=== PATIENT | male | born 1960 | race Two or more races ===

== ENCOUNTER 2024-10-29 18:48 | Inpatient (IN) | payer MEDICAID ==
[~2024-10-29] VITALS: Ht 165.1 cm; Wt 48.5 kg
[2024-10-29] MEDS ORDERED: levoFLOXacin 750MG/D5W 150 ML IV ONE (19:15)
[2024-10-29] MEDS: IV NORMAL SALINE 1000 ML BAG IV ONE (19:30)
[2024-10-29 19:34] LABS: BASOPHILS # (AUTO) 0.1 K/UL (0.0-0.2); BASOPHILS % (AUTO) 0.6 % (0.0-2.0); HEMATOCRIT 30.8 % (36.7-47.1); HEMOGLOBIN 10.1 g/dL (12.5-16.3); LYMPHOCYTES # (AUTO) 0.7 K/uL (0.8-4.8); MEAN CORPUSCULAR HGB CONC 33 g/dL (32.5-36.3); MEAN CORPUSCULAR VOLUME 91.8 fL (73.0-96.2); MONOCYTES # (AUTO) 0.7 K/uL (0.1-1.30); MONOCYTES % (AUTO) 6.4 % (0.0-11.0); NEUTROPHILS # (AUTO) 9.7 K/uL (1.8-8.9); PLATELET COUNT (AUTO) 372 K/uL (152-348); RED BLOOD CELL COUNT(AUTO) 3.35 MIL/uL (4.06-5.63); RED CELL DISTRIBUTION WIDTH 15.9 % (12.1-16.2); WHITE BLOOD COUNT (AUTO) 11.1 K/uL (3.6-10.2)
[2024-10-29 19:43] LABS: DIFFERENTIAL COMMENT 1
[2024-10-29] MEDS ORDERED: CEFEPIME HCL 1 G VIAL ONE (19:43)
[2024-10-29] MEDS ORDERED: VANCOMYCIN IV 200 ML ONE (19:43)
[2024-10-29] MEDS ORDERED: METRONIDAZOLE 500 MG/NS 100ML 100 ML IV ONE (19:44)
[2024-10-29 19:45] LABS: *BILIRUBIN,URIN 1+ (NEGATIVE); *BLOOD, URINE 3+ (NEGATIVE); *COLOR,URINE RED (YELLOW); *KETONES,URINE 1+ (NEGATIVE); *PROTEIN,URINE 3+ (NEGATIVE); LEUKOCYTE ESTERASE ,URINE 3+ (NEGATIVE); NITRITE, URINE NEGATIVE (NEGATIVE); PH,URINE 5.5 (5.0-8.0); UGLUCOSE NEGATIVE (NEGATIVE)
[2024-10-29] MEDS: METRONIDAZOLE 500 MG/NS 100 ML PIGGYBACK IV ONE (19:45)
[2024-10-29 19:49] LABS: CALCIUM 9.9 mg/dL (8.5-10.1); CARBON DIOXIDE 29 mmol/L (21-32); CHLORIDE 109 mmol/L (98-107); GLUCOSE 250 mg/dL (74-106); POTASSIUM 5.4 mmol/L (3.5-5.1); SODIUM SERUM 149 mmol/L (136-145); UREA NITROGEN, BLOOD 75 mg/dL (7-18)
[2024-10-29 19:51] LABS: *CLARITY,URINE HAZY (CLEAR)
[2024-10-29] MEDS ORDERED: QUET400T PO (19:55)
[2024-10-29] MEDS ORDERED: INSU100C (19:55)
[2024-10-29] MEDS ORDERED: RISP3TAB61 PO (19:55)
[2024-10-29] MEDS ORDERED: METF-442 PO (19:55)
[2024-10-29] MEDS ORDERED: DOCU100T2 PO (19:55)
[2024-10-29] MEDS ORDERED: IPRA3AMP23 IH (19:55)
[2024-10-29] MEDS ORDERED: LISI10TA29 PO (19:55)
[2024-10-29] MEDS ORDERED: TAMS-3 PO (19:55)
[2024-10-29] MEDS ORDERED: NUT.237L36 PO (19:55)
[2024-10-29] MEDS ORDERED: HYDR50TA62 PO (19:55)
[2024-10-29] MEDS ORDERED: ACET-3117 PO (19:55)
[2024-10-29 20:03] LABS: ALANINE AMINOTRANSFERASE 21 U/L (16-63); ALKALINE PHOSPHATASE 76 U/L (50-136); ASPARTATE AMINOTRANSFERASE 16 U/L (15-37); BILIRUBIN,DIRECT 0.1 mg/dL (0.0-0.2); BILIRUBIN,TOTAL 0.5 mg/dL (0.2-1.0); NT-PRO BNP 285 pg/mL (0-125); TOTAL PROTEIN, SERUM 7.4 g/dL (6.4-8.2)
[2024-10-29 20:05] LABS: LACTIC ACID 4.8 mmol/L (0.4-2.0)
[2024-10-29 20:13] LABS: RBC,URINE TNTC /HPF (0-3)
[2024-10-29 20:14] LABS: BACTERIA,URINE FEW /HPF (NONE SEEN); SQUAMOUS EPITHELIAL CELL,UR FEW /HPF (NONE SEEN); WBC,URINE 20-50 /HPF (0-3)
[2024-10-29 20:15] LABS: YEAST,URINE PSEUDOHYPHAE /HPF (NONE SEEN)
[2024-10-29] MEDS: CEFEPIME HCL 2 G in IV DEXTROSE 5% 100 ML IV ONE (20:24)
[2024-10-29] MEDS: VANCOMYCIN IV 1,000 MG in IV DEXTROSE 5% 250 ML IV ONE (20:24)
[2024-10-29 20:38] VITALS: O2SAT 97
[2024-10-29] MEDS ORDERED: PIPERACILLIN/TAZOBACTAM/D5W 50 ML ONE (23:35)
[2024-10-30] VITALS: BP 102/64; TEMP 98.6; O2SAT 98
[2024-10-30] MEDS ORDERED: ONDANSETRON 4 MG/2 ML VIAL IV PRN
[2024-10-30] MEDS ORDERED: ALBUTEROL SULFATE 2.5 MG/3 ML NEBU NEB PRN ×2 (00:15→13:59)
[2024-10-30] MEDS: PIPERACILLIN/TAZO 2.25 G in IV DEXTROSE 5% 50 ML IV SCH (00:54)
[2024-10-30] MEDS: IV D5/ 0.9% NACL 1,000 ML IV PRN (00:54)
[2024-10-30 04:00] VITALS: BP 101/61; TEMP 97.1; O2SAT 97
[2024-10-30] MEDS ORDERED: PIPERACILLIN/TAZO 2.25 G in IV DEXTROSE 5% 50 ML IV SCH ×2 (06:00)
[2024-10-30 07:08] LABS: BASOPHILS % (AUTO) 0.3 % (0.0-2.0); EOSINOPHILS # (AUTO) 0.1 K/uL (0.0-0.7); HEMATOCRIT 29.3 % (36.7-47.1); HEMOGLOBIN 9.8 g/dL (12.5-16.3); LYMPHOCYTES # (AUTO) 0.7 K/uL (0.8-4.8); MEAN CORPUSCULAR HEMOGLOBIN 30.4 uug (23.8-33.4); MEAN CORPUSCULAR HGB CONC 33 g/dL (32.5-36.3); MEAN CORPUSCULAR VOLUME 91.4 fL (73.0-96.2); MONOCYTES # (AUTO) 0.7 K/uL (0.1-1.30); MONOCYTES % (AUTO) 8.3 % (0.0-11.0); NEUTROPHILS # (AUTO) 6.6 K/uL (1.8-8.9); NEUTROPHILS % (AUTO) 81.4 % (38.5-71.5); PLATELET COUNT (AUTO) 321 K/uL (152-348); RED CELL DISTRIBUTION WIDTH 15.6 % (12.1-16.2); WHITE BLOOD COUNT (AUTO) 8.1 K/uL (3.6-10.2)
[2024-10-30 07:19] LABS: DIFFERENTIAL COMMENT 1
[2024-10-30 07:30] LABS: THYROID STIMULATING HORMONE 1.866 mIU/mL (0.358-3.740)
[2024-10-30 07:43] VITALS: BP 107/70; TEMP 97.9; O2SAT 97
[2024-10-30 08:27] LABS: ALBUMIN 2.6 g/dL (3.4-5.0); BILIRUBIN,TOTAL 0.4 mg/dL (0.2-1.0); CALCIUM 9.1 mg/dL (8.5-10.1); CREATININE 0.9 mg/dL (0.6-1.3); MAGNESIUM 2.4 mg/dL (1.8-2.4); PHOSPHOROUS 3.4 mg/dL (2.5-4.9); POTASSIUM 3.9 mmol/L (3.5-5.1); TOTAL PROTEIN, SERUM 6.7 g/dL (6.4-8.2)
[2024-10-30] MEDS: PANTOPRAZOLE SODIUM 40 MG VIAL IV SCH (08:45)
[2024-10-30 11:54] VITALS: BP 117/67; TEMP 97.5; O2SAT 99
[2024-10-30] MEDS: VANCOMYCIN HCL 750 MG in IV DEXTROSE 5% 250 ML IV SCH (12:47)
[2024-10-30] MEDS: CEFEPIME HCL 1 G in IV DEXTROSE 5% 50 ML IV SCH (12:47)
[2024-10-30] MEDS ORDERED: Medication Not On Formulary EA (Hydroxyzine Hcl 50 MG) PO PRN (13:15)
[2024-10-30] MEDS ORDERED: hydrOXYzine HCL 25 MG TABLET PO PRN (13:45)
[2024-10-30] MEDS: DOCUSATE SODIUM 100 MG CAPSULE PO SCH (14:04)
[2024-10-30] MEDS ORDERED: IPRATROPIUM BROMIDE 0.5 MG/2.5 ML NEBU NEB PRN (14:15)
[2024-10-30 15:48] VITALS: BP 108/76; TEMP 98; O2SAT 99
[2024-10-30] MEDS: risperiDONE 1 MG TABLET PO SCH (16:59)
[2024-10-30 19:35] VITALS: BP 91/58; TEMP 98; O2SAT 100
[2024-10-30] MEDS ORDERED: Medication Not On Formulary EA (Quetiapine Fumarate (Seroquel) 400 MG) PO SCH (21:00)
[2024-10-30] MEDS: QUETIAPINE FUMARATE 200 MG TABLET PO SCH (22:19)
[2024-10-31 00:18] VITALS: BP 110/70; TEMP 97; O2SAT 96
[2024-10-31 04:33] VITALS: BP 126/58; TEMP 97.7; O2SAT 100
[2024-10-31 06:08] LABS: ABG BASE EXCESS 3.9 mmol/L (-2.0-3.0); ABG HCO3 27.5 mmol/L (21.0-28.0); ABG PCO2 37.8 mmHg (35.0-48.0); ABG SITE RIGHT RADIAL; ABG TOTAL HEMOGLOBIN 10.2 G/dL (13.5-17.5); AaDO2 96.7 mmHg; COHb 0.3 % (0.5-1.5); MetHb 0.3 % (0.0-1.5); O2Hb 95.3 % (94.0-98.0)
[2024-10-31 06:40] LABS: BASOPHILS % (AUTO) 0.3 % (0.0-2.0); EOSINOPHILS # (AUTO) 0.1 K/uL (0.0-0.7); EOSINOPHILS % (AUTO) 2.2 % (0.0-7.0); HEMATOCRIT 27.4 % (36.7-47.1); HEMOGLOBIN 9.2 g/dL (12.5-16.3); LYMPHOCYTES # (AUTO) 0.7 K/uL (0.8-4.8); LYMPHOCYTES % (AUTO) 11.8 % (20.5-51.5); MEAN CORPUSCULAR HEMOGLOBIN 30.3 uug (23.8-33.4); MEAN CORPUSCULAR HGB CONC 34 g/dL (32.5-36.3); MEAN CORPUSCULAR VOLUME 90.1 fL (73.0-96.2); MONOCYTES # (AUTO) 0.6 K/uL (0.1-1.30); MONOCYTES % (AUTO) 9.5 % (0.0-11.0); NEUTROPHILS # (AUTO) 4.8 K/uL (1.8-8.9); NEUTROPHILS % (AUTO) 76.2 % (38.5-71.5); PLATELET COUNT (AUTO) 284 K/uL (152-348); RED BLOOD CELL COUNT(AUTO) 3.04 MIL/uL (4.06-5.63); RED CELL DISTRIBUTION WIDTH 15.3 % (12.1-16.2); WHITE BLOOD COUNT (AUTO) 6.3 K/uL (3.6-10.2)
[2024-10-31 06:46] LABS: DIFFERENTIAL COMMENT 1
[2024-10-31 07:18] LABS: CALCIUM 8.7 mg/dL (8.5-10.1); CARBON DIOXIDE 32 mmol/L (21-32); CHLORIDE 102 mmol/L (98-107); CREATININE 0.5 mg/dL (0.6-1.3); GLUCOSE 266 mg/dL (74-106); POTASSIUM 3.4 mmol/L (3.5-5.1); SODIUM SERUM 140 mmol/L (136-145); UREA NITROGEN, BLOOD 22 mg/dL (7-18)
[2024-10-31 07:49] VITALS: BP 116/67; TEMP 97.8; O2SAT 99
[2024-10-31] MEDS: GLUCERNA 1.2 1000ML LIQUID PO SCH (08:00)
[2024-10-31] MEDS ORDERED: Medication Not On Formulary EA (Docusate Sodium 200 MG) PO SCH (09:00)
[2024-10-31] MEDS: TAMSULOSIN HCL 0.4 MG CAP.SR.24H PO SCH (09:28)
[2024-10-31 11:40] VITALS: BP 110/63; TEMP 97.7; O2SAT 99
[2024-10-31] MEDS: POTASSIUM CHLORIDE 20 MEQ POWDER PACKET PO ONE (14:02)
[2024-10-31] MEDS: CEFEPIME HCL 1 G in IV DEXTROSE 5% 50 ML IV SCH (14:02)
[2024-10-31] MEDS: POTASSIUM CHLORIDE 50 ML IV SCH (14:22)
[2024-10-31] MEDS ORDERED: POTASSIUM CHLORIDE 50 ML IV SCH (14:30)
[2024-10-31 15:50] VITALS: BP 104/62; TEMP 97.6; O2SAT 97
[2024-10-31 19:00] VITALS: BP 107/64; TEMP 98.1; O2SAT 98
[2024-11-01 05:05] VITALS: O2SAT 97
[2024-11-01 06:00] VITALS: BP 100/63; TEMP 98.3; O2SAT 97
[2024-11-01 07:39] LABS: BASOPHILS % (AUTO) 0.4 % (0.0-2.0); EOSINOPHILS # (AUTO) 0.1 K/uL (0.0-0.7); EOSINOPHILS % (AUTO) 1.6 % (0.0-7.0); HEMATOCRIT 26.6 % (36.7-47.1); LYMPHOCYTES # (AUTO) 0.4 K/uL (0.8-4.8); LYMPHOCYTES % (AUTO) 11.2 % (20.5-51.5); MEAN CORPUSCULAR HEMOGLOBIN 31.3 uug (23.8-33.4); MEAN CORPUSCULAR HGB CONC 34 g/dL (32.5-36.3); MONOCYTES # (AUTO) 0.4 K/uL (0.1-1.30); MONOCYTES % (AUTO) 10.1 % (0.0-11.0); NEUTROPHILS % (AUTO) 76.7 % (38.5-71.5); PLATELET COUNT (AUTO) 236 K/uL (152-348); RED BLOOD CELL COUNT(AUTO) 2.89 MIL/uL (4.06-5.63)
[2024-11-01 07:53] LABS: DIFFERENTIAL COMMENT 1
[2024-11-01 08:00] LABS: CALCIUM 7.7 mg/dL (8.5-10.1); CARBON DIOXIDE 27 mmol/L (21-32); CHLORIDE 107 mmol/L (98-107); CREATININE 0.6 mg/dL (0.6-1.3); POTASSIUM 3.5 mmol/L (3.5-5.1); SODIUM SERUM 141 mmol/L (136-145); UREA NITROGEN, BLOOD 13 mg/dL (7-18)
[2024-11-01 08:06] LABS: GLUCOSE 540 mg/dL (74-106)
[2024-11-01] MEDS: PANTOPRAZOLE SODIUM 40 MG TABLET.DR PO SCH (08:23)
[2024-11-01 11:01] VITALS: BP 101/75; TEMP 98.4; O2SAT 96
[2024-11-01] MEDS ORDERED: DEXTROSE 50% 50 ML DISP.SYRIN IV PRN (11:30)
[2024-11-01] MEDS: IV NORMAL SALINE 250 ML IV ONE (11:42)
[2024-11-01] MEDS: BLOOD SUGAR DIAGNOSTIC 1 EACH STRIP VI SCH (11:47)
[2024-11-01] MEDS: INSULIN REGULAR, HUMAN 1000 UNIT/10 ML VIAL SQ ONE (11:58)
[2024-11-01] MEDS ORDERED: VANCOMYCIN HCL 750 MG in IV DEXTROSE 5% 250 ML IV SCH (12:00)
[2024-11-01] MEDS: INSULIN REGULAR, HUMAN 1000 UNIT/10 ML VIAL SQ PRN (12:00)
[2024-11-01 15:49] VITALS: BP 100/55; TEMP 97.6; O2SAT 94
[2024-11-01 17:22] VITALS: O2SAT 94
[2024-11-01 21:00] VITALS: BP 123/74; TEMP 97.8
[2024-11-01] MEDS: CALCIUM CARBONATE 500 MG TABLET PO SCH (21:21)
[2024-11-02 04:00] VITALS: BP 108/69; TEMP 98.2; O2SAT 96
[2024-11-02 05:05] VITALS: O2SAT 95
[2024-11-02 07:07] LABS: BASOPHILS % (AUTO) 0.4 % (0.0-2.0); EOSINOPHILS # (AUTO) 0.1 K/uL (0.0-0.7); EOSINOPHILS % (AUTO) 1.7 % (0.0-7.0); HEMATOCRIT 29.1 % (36.7-47.1); HEMOGLOBIN 10.1 g/dL (12.5-16.3); LYMPHOCYTES # (AUTO) 0.6 K/uL (0.8-4.8); MEAN CORPUSCULAR HEMOGLOBIN 30.9 uug (23.8-33.4); MEAN CORPUSCULAR HGB CONC 35 g/dL (32.5-36.3); MEAN CORPUSCULAR VOLUME 88.9 fL (73.0-96.2); MONOCYTES # (AUTO) 0.5 K/uL (0.1-1.30); MONOCYTES % (AUTO) 10.5 % (0.0-11.0); NEUTROPHILS # (AUTO) 3.5 K/uL (1.8-8.9); NEUTROPHILS % (AUTO) 75.4 % (38.5-71.5); PLATELET COUNT (AUTO) 257 K/uL (152-348); RED BLOOD CELL COUNT(AUTO) 3.27 MIL/uL (4.06-5.63); RED CELL DISTRIBUTION WIDTH 14.7 % (12.1-16.2); WHITE BLOOD COUNT (AUTO) 4.7 K/uL (3.6-10.2)
[2024-11-02 07:27] LABS: CALCIUM 9.3 mg/dL (8.5-10.1); CARBON DIOXIDE 29 mmol/L (21-32); CHLORIDE 105 mmol/L (98-107); CREATININE 0.5 mg/dL (0.6-1.3); GLUCOSE 107 mg/dL (74-106); PHOSPHOROUS 3.1 mg/dL (2.5-4.9); POTASSIUM 3.8 mmol/L (3.5-5.1); SODIUM SERUM 141 mmol/L (136-145); UREA NITROGEN, BLOOD 12 mg/dL (7-18)
[2024-11-02 07:48] LABS: DIFFERENTIAL COMMENT 1
[2024-11-02] MEDS ORDERED: CEFU500T66 PO (09:12)
[2024-11-02 11:28] VITALS: BP 138/63; TEMP 98.4; O2SAT 97
[2024-11-02 11:29] VITALS: BP 96/55; TEMP 98.4; O2SAT 91
[2024-11-02] MEDS: LIDOCAINE 2% (GLYDO= UROJET) 10 ML JELLY MM ONE (11:50)
[2024-11-02 12:31] LABS: BASOPHILS % (AUTO) 0.4 % (0.0-2.0); EOSINOPHILS # (AUTO) 0.1 K/uL (0.0-0.7); EOSINOPHILS % (AUTO) 2.1 % (0.0-7.0); HEMATOCRIT 28.5 % (36.7-47.1); HEMOGLOBIN 9.7 g/dL (12.5-16.3); LYMPHOCYTES # (AUTO) 0.4 K/uL (0.8-4.8); LYMPHOCYTES % (AUTO) 8.2 % (20.5-51.5); MEAN CORPUSCULAR HEMOGLOBIN 30.5 uug (23.8-33.4); MEAN CORPUSCULAR HGB CONC 34 g/dL (32.5-36.3); MEAN CORPUSCULAR VOLUME 89.8 fL (73.0-96.2); MONOCYTES # (AUTO) 0.6 K/uL (0.1-1.30); MONOCYTES % (AUTO) 10.7 % (0.0-11.0); NEUTROPHILS # (AUTO) 4.1 K/uL (1.8-8.9); NEUTROPHILS % (AUTO) 78.6 % (38.5-71.5); PLATELET COUNT (AUTO) 244 K/uL (152-348); RED BLOOD CELL COUNT(AUTO) 3.17 MIL/uL (4.06-5.63); RED CELL DISTRIBUTION WIDTH 15.3 % (12.1-16.2); WHITE BLOOD COUNT (AUTO) 5.2 K/uL (3.6-10.2)
[2024-11-02 12:34] LABS: DIFFERENTIAL COMMENT 1
[2024-11-02 13:04] LABS: CALCIUM 9.1 mg/dL (8.5-10.1); CARBON DIOXIDE 28 mmol/L (21-32); CHLORIDE 104 mmol/L (98-107); CREATININE 0.6 mg/dL (0.6-1.3); GLUCOSE 153 mg/dL (74-106); POTASSIUM 4.1 mmol/L (3.5-5.1); SODIUM SERUM 141 mmol/L (136-145); UREA NITROGEN, BLOOD 18 mg/dL (7-18)
[2024-11-02 15:42] VITALS: BP 108/60; TEMP 97.6; O2SAT 95
[2024-11-02 21:50] LABS: HEMATOCRIT 25.8 % (36.7-47.1); HEMOGLOBIN 8.8 g/dL (12.5-16.3)
[2024-11-02] MEDS: IV NS 1000 ML 1,000 ML IV ONE (21:57)
[2024-11-02 22:56] VITALS: BP 97/53; TEMP 97.5; O2SAT 98
[2024-11-03 01:48] LABS: HEMATOCRIT 29.6 % (36.7-47.1)
[2024-11-03 06:52] VITALS: BP 101/57; TEMP 98.2; O2SAT 95
[2024-11-03 07:16] LABS: BASOPHILS % (AUTO) 0.2 % (0.0-2.0); EOSINOPHILS # (AUTO) 0.1 K/uL (0.0-0.7); EOSINOPHILS % (AUTO) 0.6 % (0.0-7.0); HEMATOCRIT 28.5 % (36.7-47.1); HEMOGLOBIN 9.7 g/dL (12.5-16.3); LYMPHOCYTES # (AUTO) 0.5 K/uL (0.8-4.8); LYMPHOCYTES % (AUTO) 5.1 % (20.5-51.5); MEAN CORPUSCULAR HEMOGLOBIN 30.5 uug (23.8-33.4); MEAN CORPUSCULAR HGB CONC 34 g/dL (32.5-36.3); MEAN CORPUSCULAR VOLUME 89.5 fL (73.0-96.2); MONOCYTES # (AUTO) 0.8 K/uL (0.1-1.30); MONOCYTES % (AUTO) 8.3 % (0.0-11.0); NEUTROPHILS # (AUTO) 8.4 K/uL (1.8-8.9); NEUTROPHILS % (AUTO) 85.8 % (38.5-71.5); PLATELET COUNT (AUTO) 240 K/uL (152-348); RED BLOOD CELL COUNT(AUTO) 3.18 MIL/uL (4.06-5.63); RED CELL DISTRIBUTION WIDTH 15.3 % (12.1-16.2); WHITE BLOOD COUNT (AUTO) 9.8 K/uL (3.6-10.2)
[2024-11-03 07:39] LABS: DIFFERENTIAL COMMENT 1
[2024-11-03 09:10] VITALS: O2SAT 98
[2024-11-03 11:26] LABS: HEMATOCRIT 28.8 % (36.7-47.1); HEMOGLOBIN 9.5 g/dL (12.5-16.3)
[2024-11-03 12:00] VITALS: BP 138/66; TEMP 97.6; O2SAT 97
[2024-11-03 12:26] LABS: CARBON DIOXIDE 27 mmol/L (21-32); CHLORIDE 102 mmol/L (98-107); CREATININE 0.6 mg/dL (0.6-1.3); GLUCOSE 182 mg/dL (74-106); POTASSIUM 4.3 mmol/L (3.5-5.1); SODIUM SERUM 138 mmol/L (136-145); UREA NITROGEN, BLOOD 20 mg/dL (7-18)
[2024-11-03 15:11] LABS: HEMATOCRIT 24.1 % (36.7-47.1); HEMOGLOBIN 8.2 g/dL (12.5-16.3)
[2024-11-03] MEDS: IV NS 1000 ML 1,000 ML IV ONE (15:39)
[2024-11-03 16:00] VITALS: BP 96/56; TEMP 97.2; O2SAT 97
[2024-11-03 17:31] LABS: HEMATOCRIT 25.1 % (36.7-47.1); HEMOGLOBIN 8.5 g/dL (12.5-16.3)
[2024-11-03 21:23] LABS: HEMOGLOBIN 8.2 g/dL (12.5-16.3)
[2024-11-04 00:29] VITALS: BP 101/63; TEMP 98.5; O2SAT 96
[2024-11-04 01:34] LABS: HEMATOCRIT 25.9 % (36.7-47.1); HEMOGLOBIN 8.8 g/dL (12.5-16.3)
[2024-11-04 06:53] VITALS: BP 167/101; TEMP 97.4; O2SAT 96
[2024-11-04 07:18] LABS: BASOPHILS % (AUTO) 0.3 % (0.0-2.0); EOSINOPHILS # (AUTO) 0.2 K/uL (0.0-0.7); EOSINOPHILS % (AUTO) 2.2 % (0.0-7.0); HEMATOCRIT 26.7 % (36.7-47.1); HEMOGLOBIN 9.2 g/dL (12.5-16.3); LYMPHOCYTES # (AUTO) 0.6 K/uL (0.8-4.8); MEAN CORPUSCULAR HEMOGLOBIN 30.7 uug (23.8-33.4); MEAN CORPUSCULAR HGB CONC 35 g/dL (32.5-36.3); MEAN CORPUSCULAR VOLUME 88.8 fL (73.0-96.2); MONOCYTES # (AUTO) 0.7 K/uL (0.1-1.30); MONOCYTES % (AUTO) 9.3 % (0.0-11.0); NEUTROPHILS # (AUTO) 5.7 K/uL (1.8-8.9); NEUTROPHILS % (AUTO) 80.2 % (38.5-71.5); PLATELET COUNT (AUTO) 231 K/uL (152-348); RED CELL DISTRIBUTION WIDTH 15.2 % (12.1-16.2); WHITE BLOOD COUNT (AUTO) 7.2 K/uL (3.6-10.2)
[2024-11-04 07:35] LABS: DIFFERENTIAL COMMENT 1
[2024-11-04] MEDS ORDERED: FLUC200T8 PO (11:03)
[2024-11-04 11:46] VITALS: BP 114/74; TEMP 98.1; O2SAT 99
[2024-11-04] MEDS: FLUCONAZOLE 200 MG TABLET PO ONE (14:11)
== END 2024-11-04 18:00 | DRG 133 ==
LOC: ER 18:48 → TELE-TD3 22:49 → TELE3 23:15 → MEDSURG3 10-31 14:10
PROVIDERS: ADMIT Internal Medicine
PROC: 0T9B70Z Drainage of Bladder with Drainage Device, Via Natural or Artificial Opening (ICD-10-PCS; principal; 2024-11-02)
PROC: 0T2BX0Z Change Drainage Device in Bladder, External Approach (ICD-10-PCS; 2024-11-03)
DX: J96.01 Acute respiratory failure with hypoxia (principal); N17.0 Acute kidney failure with tubular necrosis; G93.41 Metabolic encephalopathy; E44.0 Moderate protein-calorie malnutrition; E87.20 Acidosis, unspecified; E87.0 Hyperosmolality and hypernatremia; J15.9 Unspecified bacterial pneumonia; D62 Acute posthemorrhagic anemia; E88.09 Other disorders of plasma-protein metabolism, not elsewhere classified; B37.49 Other urogenital candidiasis; T83.511A Infection and inflammatory reaction due to indwelling urethral catheter, initial encounter; R79.1 Abnormal coagulation profile; Z68.1 Body mass index [BMI] 19.9 or less, adult; F20.9 Schizophrenia, unspecified; Y84.6 Urinary catheterization as the cause of abnormal reaction of the patient, or of later complication, without mention of misadventure at the time of the procedure; Z74.01 Bed confinement status; Z88.0 Allergy status to penicillin; B96.89 Other specified bacterial agents as the cause of diseases classified elsewhere; R31.0 Gross hematuria; E87.5 Hyperkalemia; T46.4X5A Adverse effect of angiotensin-converting-enzyme inhibitors, initial encounter; Y92.129 Unspecified place in nursing home as the place of occurrence of the external cause; N32.89 Other specified disorders of bladder; F03.911 Unspecified dementia, unspecified severity, with agitation; I10 Essential (primary) hypertension; Z79.84 Long term (current) use of oral hypoglycemic drugs; E11.65 Type 2 diabetes mellitus with hyperglycemia; E86.0 Dehydration
CPT/HCPCS: 36415; 36600; 71045; 83550; 83605; 83735; 84100; 84443; 84484; 85018; 85025; 85730; 87040; A4606; A4663; G0378; J0692; J1815; J2470; J2543; J3370; J3480; J3490; J7040; J7042; J7050